=== PATIENT | male | born 1970 | race Caucasian/White ===

== ENCOUNTER → 2019-05-26 | Day surgery (SDC) | payer OTHER ==
[~2019-05-26] VITALS: Ht 193 cm; Wt 117.9 kg
[~2019-05-26] MED LIST: BUPIVAC MPF-EPI 0.5%-1:200000 30 ML VIAL. ONE; BUPIVACAINE MPF 0.25% 30 ML VIAL. ONE; BUPIVACAINE MPF 0.5% 30 ML VIAL. ONE; DEXAMETHASONE SOD PHOS 4 MG/ML VIAL ONE; HYDR-3165 PO; HYDROcodone/APAP 7.5/325MG 1 TAB TABLET PO ONE; HYDROmorphone 2 MG/ML VIAL IV PRN; IV RINGERS,LACTATED 1000ML 1,000 ML IV SCH; LIDOCAINE 1% PF 2 ML VIAL. ID PRN; LIDOCAINE 2% PF 5 ML VIAL. ONE; LORA10TA68 PO; MIDAZOLAM HCL/PF 2 MG/2 ML VIAL. ONE; MORPHINE SULFATE 2 MG/ML VIAL. IV PRN; ONDANSETRON PF 4 MG/2 ML VIAL. IV PRN; ONDANSETRON PF 4 MG/2 ML VIAL. ONE; PROCHLORPERAZINE 10 MG/2 ML VIAL. IV PRN; PROPOFOL 20 ML IV ONE; SEVOFLURANE 61 TO 120 MINUTES. IH ONE; ceFAZolin 2GM PREMIX 2 GM/50 ML BAG IV ONE; fentaNYL PF VIAL 100 MCG/2 ML VIAL IV PRN; fentaNYL PF VIAL 100 MCG/2 ML VIAL ONE
--- NOTE | 2019-05-26 07:16 | DISCH ---
DISCHARGE INSTRUCTIONS Condition on Discharge Condition on Discharge: Stable Activity After Discharge Activity Instructions for Disc: Other, see below (slow return to activities as tolerated, less walking first couple of days and then advance as any swelling subsides) Weight Bearing Status after Di: As tolerated Diet after Discharge Diet after Discharge: Regular Wound Incision Care Wound/Incision Care: Ice to area for comfort, Change dressing (May remove dressing in 2 days may then shower no soaking until sutures removed) Contacting the DRRocael after DC Call your doctor for: call for persistent Swelling or tenderness as we discussed Follow-Up Follow up with: Dr. Smith 7-10 days AIDE SMITH MD May 26, 2019 07:16
--- NOTE | 2019-05-26 09:01 | PDOC4 ---
Operative Note Operative Note Date of surgery: 05/26/2019 Preoperative diagnosis: Symptomatic loose body left knee Postoperative diagnosis: Same plus additional loose body intercondylar notch and extensive lateral meniscus tear Operative procedure: Left knee arthroscopy removal loose bodies and extensive partial lateral meniscectomy Surgeon: Sarah Anesthesia: Gen. Estimated blood loss: 10 mL Complications: None Operative indications: Please see my detailed clinic note for detailed operative indications but note that the patient is a 48-year-old male otherwise healthy that sustained a basketball injury some time ago and is complained of a loose body in the lateral aspect of his knee that moves around sometimes gets caught under his kneecap and is quite painful. This is confirmed on x-ray. I had talked with him about the possibility of removal of the loose body as well as dealing with any other pathological conditions in the knee at the same time. I emphasized that I cannot undo any degenerative changes that may be giving him some ongoing symptoms and we have talked about risks of possible infection blood clot nerve or blood vessel damage continued pain medical or other anesthetic complications among others he agrees to proceed with surgical evaluation and treatment Operative text: Patient was identified procedure verified and after informed consent was obtained he was placed in the operating table and adequate amounts of general anesthesia were administered. And the left lower extremity was prepped and draped in standard sterile fashion with a thigh tourniquet. After timeout was performed patient procedure again verified the left lower extremity was exsanguinated by Esmarch bandage tourniquet inflated to 350 mmHg a lateral portal was established a medial portal established using spinal needle localization and the knee joint was systematically examined. 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 No loose body in the suprapatellar pouch or medial gutter. Medial meniscus was probed and found to be intact he did have a small loose body in the intercondylar notch attached to the synovium covering the anterior cruciate ligament and this was removed with the arthroscopic grasper. The lateral meniscus was examined and found to have extensive complex tearing and he had an area of approximately 1 cm round full-thickness cartilage loss on the lateral portion of the tibial weightbearing surface. Lateral femoral weightbearing surfa ce had grade 3 chondromalacia without full-thickness defect. Extensive lateral meniscectomy was performed with removal of nearly the entire posterior horn which was severely compromised. Popliteus remained intact and remaining lateral meniscus was radiused appropriately to ensure stability of the remaining meniscal tissue and it was probed for stability. The loose body expected in the lateral gutter was very large and was removed via a separate 3-1/2 cm incision over the lateral knee and loose bodies were photographed. Bleeding points were controlled by electrocautery knee joint was drained of arthroscopic fluid and closure of the lateral incision was carried out with buried Vicryl suture skin closure of the portals and lateral incision was carried out with nylon suture fat pad and incision areas were infused with a total of 30 mL of half percent Marcaine with epinephrine sterile dressings were placed toes were noted be warm pink find deflation of tourniquet patient was returned to recovery room in stable condition having tolerated procedure well AIDE MASON MD May 26, 2019 09:01
[2019-05-26 09:15] VITALS: BP 141/75
--- NOTE | 2019-05-28 16:06 | PATHOLOGY ---
[facility] Accession Number: [id number] . 01 Material submitted: . knee - LEFT KNEE LOOSE BODY. Modifiers: left . 01 Clinical history: . None provided . 02 Diagnosis: Osteocartilaginous loose body, clinically from left knee (gross only). . (JPM:henry; 05/28/2019) QMS/05/28/2019 . 02 Electronically signed: . Nader Spencer MD, Pathologist NPI- [id number] . 01 Gross description: . The specimen is received in formalin, labeled "Frederick Fernandes, left knee loose body gross only" and consists of a solid segment of white calcified tissue measuring 3.7 x 2.9 x 1.6 cm. Gross photos are taken and no sections are submitted. (SDY; 05/26/2019) SYU/SYU . 02 Pathologist provided ICD-10: M23.42 . 02 CPT . 105943 Specimen Comment: A courtesy copy of this report has been sent to Specimen Comment: [phone], . Specimen Comment: Report sent to / DR WEINSTEIN Performed at: 01 [facility] [address] [facility] [address], [place] [id number] MD Roland Guzman MD Phone: [phone] Performed at: 02 [facility] [address] [place], [place] [id number] MD Nader Spencer MD Phone: [phone]
== END ==
LOC: SURG 05:57
PROVIDERS: ATTEND Orthopaedic Surgery
DX: S83.272A Complex tear of lateral meniscus, current injury, left knee, initial encounter (principal); M23.42 Loose body in knee, left knee; X58.XXXA Exposure to other specified factors, initial encounter; Y93.67 Activity, basketball; Y92.9 Unspecified place or not applicable; F32.9 Major depressive disorder, single episode, unspecified; G47.33 Obstructive sleep apnea (adult) (pediatric); J30.2 Other seasonal allergic rhinitis; Z79.899 Other long term (current) drug therapy; Z98.890 Other specified postprocedural states
CPT/HCPCS: 29881; 97116; 97162; A7015; C1782; J0696; J1100; J2001; J2250; J2405; J2704; J3010; J3490; J7120